=== PATIENT | female | born 1975 | race Caucasian/White ===

== ENCOUNTER 2021-06-10 06:31 | Day surgery (SDC) | payer BC ==
[2021-06-10] MEDS ORDERED: Ringers Lactate 1,000 ML IV ONE (07:08)
[2021-06-10] MEDS ORDERED: propofoL 200 MG/20 ML VIAL IV ONE ×3 (07:30→07:31)
[2021-06-10] MEDS ORDERED: LIDOCAINE 1% MPF 2 ML AMPULE ONE (07:30)
[2021-06-10] MEDS ORDERED: GLYCOPYRROLATE 0.2 MG/ML SYR ONE (07:32)
[2021-06-10] MEDS ORDERED: EPHEDRINE SULF 50 MG/ML VIAL ONE (07:33)
--- NOTE | 2021-06-10 08:02 | ENDO RPT ---
[address], [address] COLONOSCOPY PROCEDURE REPORT EXAM DATE: 06/10/2021 PATIENT NAME: Isabel Valenzuela MR #: [id number] BIRTHDATE: 1975 ATTENDING: Noel Bay DR STATUS: outpatient BALLASTER: Sara Gleason RN and Salima Ritchie INDICATIONS: The patient is a 45 yr old Female here for a colonoscopy due to colon cancer screening PROCEDURE PERFORMED: Colonoscopy with biopsy - cold polypectomy MEDICATIONS: Per Anesthesia. ESTIMATED BLOOD LOSS: None CONSENT: The patient understands the risks and benefits of the procedure and understands that these risks include, but are not limited to: sedation, allergic reaction, infection, perforation and/or bleeding. Alternative means of evaluation and treatment include, among others: physical exam, x-rays, and/or surgical intervention. The patient elects to proceed with this endoscopic procedure. DESCRIPTION OF PROCEDURE: During intra-op preparation period all mechanical medical equipment was checked for proper function. Hand hygiene and appropriate measures for infection prevention was taken. Procedure, possible complications, alternatives including, but not limited to possibility of bleeding, perforation, tear, infection, sepsis, need for surgery, need for blood transfusion, were explained to the patient. After the risks, benefits and alternatives of the procedure were thoroughly explained, Informed consent was verified, confirmed and timeout was successfully executed by the treatment team. The patient was placed in the left lateral position. A digital rectal exam was performed and revealed internal hemorrhoids. After appropriate level of anesthesia, the scope was passed. The EC-[id number] ([id number]) endoscope was introduced through the anus and advanced to the ileocecal valve. The quality of the prep was good. The instrument was then slowly withdrawn as the colon was fully examined. Scope withdrawal time was 8 minutes. COLON FINDINGS: A polypoid shaped and smooth semi-pedunculated polyp measuring 3 mm in size was found in the right colon. A polypectomy was performed with cold forceps. The resection was complete, the polyp tissue was completely retrieved and sent to histology. Moderate sized internal hemorrhoids were found. Retroflexed views revealed no abnormalities. The scope was then completely withdrawn from the patient and the procedure terminated. ADVERSE EVENTS: There were no complications. IMPRESSIONS: 1. Semi-pedunculated polyp was found in the right colon; polypectomy was performed in a piecemeal fashion with cold forceps 2. Moderate sized internal hemorrhoids RECOMMENDATIONS: 1. avoid NSAIDS for 2 weeks 2. await biopsy results 3. fiber rich diet 4. follow-up: office 2 week(s) 5. Monitor for any evidence of rectal bleeding. 6. yearly hemoccult starting in 4 years 7. yearly hemoquant 8. hemorrhoidal hygiene RECALL: for Colonoscopy, pending biopsy results. Noel Bay DR eSigned: Noel Bay DR 06/10/2021 8:01 AM cc: CPT CODES: ICD9 CODES: PATIENT NAME: Isabel Valenzuela MR#: [id number]
[2021-06-10 08:20] VITALS: TEMP 97.8; O2SAT 99
[2021-06-10 08:34] VITALS: BP 114/67
== END 2021-06-10 08:31 | disposition home or self-care (01) ==
LOC: OR 06:31
PROVIDERS: ATTEND Surgery
PROC: 0DBK8ZX Excision of Ascending Colon, Via Natural or Artificial Opening Endoscopic, Diagnostic (ICD-10-PCS; principal; 2021-06-10 07:30)
DX: Z12.11 Encounter for screening for malignant neoplasm of colon (principal); K63.5 Polyp of colon; Z20.822 Contact with and (suspected) exposure to COVID-19; K64.8 Other hemorrhoids
CPT/HCPCS: 88305; 45380; U0002; J2704 ×3; J7120